=== PATIENT | female | born 1945 | race Caucasian/White ===

== ENCOUNTER 2018-09-22 06:20 | Inpatient (IN) ==
[2018-09-22] MEDS ORDERED: Metoprolol Tartrate 25 MG Tablet PO ONE (06:55)
[2018-09-22] MEDS ORDERED: Chlorhexidine Gluconate 2% 1 Pack (2 Cloths) TOPICAL ONE (06:55)
[2018-09-22] MEDS ORDERED: Sodium Chlor 0.9% Inj 40 ML, Bupivacaine Liposo PF 1.3% Inj 20 ML P-ARTICULR SCH ×2 (07:00)
[2018-09-22] MEDS ORDERED: Tranexamic Acid Inj 954 MG in Sodium Chlor 0.9% Inj 100 ML IV.SIG SCH (07:00)
[2018-09-22] MEDS ORDERED: Vancomycin Inj 1,000 MG in Sodium Chlor 0.9% Inj 250 ML IV.SIG SCH (07:00)
[2018-09-22] MEDS ORDERED: ceFAZolin 2 GM Premix Inj 2 GM/50 ML PIGGYBACK IV.SIG SCH (07:00)
[2018-09-22] MEDS ORDERED: Chlorhexidine 4% Topical 120 APPLIC/120 ML Bottle TOPICAL SCH (07:00)
[2018-09-22] MEDS ORDERED: Sodium Chlor 0.9% Inj 500 ML IV.SIG SCH (07:00)
[2018-09-22] MEDS ORDERED: Bupivacaine/Epinephrine Inj 0.25% 50 ML Vial ONE (08:52)
[2018-09-22] MEDS ORDERED: Lidocaine PF 1% Inj 5 ML Syringe OTHER ONE (10:07)
[2018-09-22] MEDS ORDERED: Glycopyrrolate Inj 1 MG/5 ML Syringe IV.PUSH ONE (10:07)
[2018-09-22] MEDS ORDERED: Neostigmine Inj 5 MG/5 ML Syringe IV.PUSH ONE (10:07)
[2018-09-22] MEDS ORDERED: Phenylephrine/NS 1000 MCG/10ML Syringe IV.PUSH ONE (10:07)
[2018-09-22] MEDS ORDERED: Post-op Orders (for Pharmacy) OTHER STA (12:11)
[2018-09-22] MEDS ORDERED: Bisacodyl 10 MG Supp RECTAL PRN (12:11)
[2018-09-22] MEDS ORDERED: Temazepam 15 MG Capsule PO PRN (12:11)
[2018-09-22] MEDS ORDERED: Morphine Inj 4 MG/ML Vial IV.PUSH PRN (12:11)
--- NOTE | 2018-09-22 12:19 | P.OP ---
- Preoperative Diagnosis (1) Osteoarthritis of right knee - Postoperative Diagnosis (1) Osteoarthritis of right knee Date of procedure: 09/22/18 Procedure: Right total knee replacement arthroplasty Anesthesia: GETA Surgeon: Med Burks MD Operation and Findings: EBL: 100 cc INDICATION: This patient presents with long-standing arthritis of the knee. Attachment record documents conservative measures. The patient now presents for surgical treatment. NOTE: Nona Cameron PA-C was present for the entire surgical procedure as my delinquent tax collector assistant. In my medical opinion her skill and care was necessary for proper management of this patient. TOURNIQUET TIME: 64 minutes COMPANY: [employer] FEMUR: Size 6, posterior stabilized TIBIA: Size 5, fixed-bearing PATELLA: 32 mm POLYETHYLENE INSERT: 14mm, posterior stabilized PROCEDURE: This patient was brought the operating room and anesthetized in the supine position. The patient was positioned supine on the table. The tourniquet was placed about the thigh, and the leg was scrubbed with alcohol followed by Hibiclens followed by ChloraPrep and draped sterilely. A timeout was done, and antibiotics were given. After exsanguination the tourniquet was inflated to 250 mmHg. An anterior incision was made and a median parapatellar arthrotomy was performed. The patella was released laterally and subluxed allowing freehand cut of the patella which was then sized. A metal cap was placed over the exposed patellar surface for protection. A staff cytotechnologist hole was placed in the distal femur allowing a 6 valgus cut removing 9 mm from the distal femur. Anterior posterior and chamfer cuts were made. The posterior stabilize osteotomy was made. The attention was directed to the tibia. Retractors were positioned. The external alignment guide was used allowing the lateral tibia to be used as referencing guide and cut utilizing an oscillating saw taking care to avoid any injury to the surrounding soft tissues. This was sized properly. Trial reduction showed that the insert fit nicely. The patient had range of motion extension 0 flexion 120*. A medial release was not necessary. The bony surfaces prepared. On the back table 2 packets of methylmethacrylate were mixed. The components were cemented. Excess cement was removed. The tourniquet let down and hemostasis was controlled. The final plastic insert was inserted. Range of motion was the same as previously noted. A drain was brought through a separate stab incision. The arthrotomy was repaired with interrupted #1 Vicryl suture, subcutaneous tissue 2-0 Vicryl suture and skin with metallic blayne A sterile dressing was applied. Sponge counts, needle counts and instrument counts were all correct. The patient tolerated procedure well and was taken to recovery in satisfactory condition. FINDINGS: Severe inflammatory changes were seen in addition to extensive osteophytosis and severe degenerative changes. 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 The final solution was excellent. A subtotal synovectomy was accomplished. There was no complication that was appreciated.
--- NOTE | 2018-09-22 12:23 | P.DCO ---
- Physical Therapy Physical Therapy: Gait training Knee: Total knee, Protocol: Right Right Lower Extremity Weight Bearing: Weight bearing as tolerated Right Lower Extremity Range of Motion: Active ROM - Nursing RN: 3 days/week x 2 weeks Dressing changes: Do not change dressing (Unless saturated. If saturated, alcohol dressing change daily) - Certification Need for Home Health services: I have seen patient Olga Pearce on 09/22/18. My clinical findings support the need for the requested home health care services because: Need for Home Health Services: Limited ability to care for self Homebound Certification: I certify that my clinical findings support that this patient is homebound because: Homebound Certification: Unsteady gait/balance
[2018-09-22] MEDS ORDERED: *Meperidine Inj 25 MG/ML Vial PERIprocedural Use ONLY ONE (12:36)
[2018-09-22] MEDS ORDERED: *morphine SULFATE 4 MG/ML PERIprocedure ONLY ONE ×3 (12:42→12:58)
[2018-09-22] MEDS ORDERED: *Promethazine Inj 25 MG/ML Vial PERIprocedural use ONLY ONE (13:10)
[2018-09-22] MEDS ORDERED: fentaNYL Citrate Inj 100 MCG/2 ML Ampul ONE (13:12)
[2018-09-22] MEDS ORDERED: Morphine Inj 4 MG/ML Vial ONE (13:12)
--- NOTE | 2018-09-22 13:57 | XR ---
EXAM DATE: 09/22/2018 1:47 PM EDT AGE/SEX: 73 years / Female INDICATIONS: Post op right knee surgery. CLINICAL DATA: This is the patient's initial encounter. Patient reports that signs and symptoms have been present for 1 day and indicates a pain score of Nonresponsive. MEDICAL/SURGICAL HISTORY: None. None. COMPARISON: No prior exams available for comparison. FINDINGS: Views of the right knee demonstrates arthroplasty. Catheter overlies the right anterior knee. Postsur gical changes. No hardware loosening or fracture CONCLUSION: Right knee arthroplasty. Electronically signed by: Alvaro Hernandez MD 09/22/2018 1:55 PM EDT
[2018-09-22] MEDS: dilTIAZem 60 MG Tablet PO SCH ×2 (15:22→19:41)
[2018-09-22] MEDS: ceFAZolin 1 GM Premix Inj 1 GM/50 ML IV.SIG SCH ×2 (16:12→21:23)
[2018-09-22] MEDS ORDERED: Influenza (Quadrivalent) Vaccine 0.5 ML Syringe IM ONE (19:30)
[2018-09-22] MEDS: Senna/Docusate Sodium 8.6/50 MG Tablet PO SCH (20:31)
[2018-09-22] MEDS: Metoprolol Tartrate 100 MG Tablet PO SCH (20:31)
[2018-09-22] MEDS: Multivitamin/Minerals Therapeutic Tablet PO SCH (20:32)
[2018-09-23] MEDS: ceFAZolin 1 GM Premix Inj 1 GM/50 ML IV.SIG SCH (04:41)
[2018-09-23] MEDS: Metoprolol Tartrate 100 MG Tablet PO SCH ×2 (08:32→20:27)
[2018-09-23] MEDS: Multivitamin/Minerals Therapeutic Tablet PO SCH ×2 (08:32→20:26)
[2018-09-23] MEDS: dilTIAZem 60 MG Tablet PO SCH ×3 (08:33→18:37)
[2018-09-23] MEDS: Lisinopril 20 MG Tablet PO SCH (08:33)
[2018-09-23] MEDS: Senna/Docusate Sodium 8.6/50 MG Tablet PO SCH ×2 (08:33→20:26)
--- NOTE | 2018-09-23 23:54 | P.DS ---
Date of admission: 09/22/18 16:58 Primary care physician: No Primary Care Physician Attending physician on discharge: Med Burks Anticipated date of discharge: 09/24/18 DS: Diagnosis - Discharge Diagnosis (1) Osteoarthritis of right knee Status: Acute DS: Medications - Discharge Medications Prescriptions: apixaban [Eliquis] 2.5 mg PO BID #12 tab hydrocodone-acetaminophen 1 tab PO Q4H PRN #42 tab PRN Reason: Acute Pain DS: Summary Hospital Course: Surgical treatment was performed on the day of admission without complication.... Eliquis 2.5mg and [place] 7.5mg. D/C [facility] #2. - Time Spent with Patient Total time spent providing and/or coordinating discharge services: Greater than 30 minutes - Quality: VTE Deep Vein Thrombosis/Pulmonary Embolism Present on Admission: No Exam Vital signs: Vital Signs 09/23/18 00:00 09/23/18 04:40 09/23/18 08:00 Temperature 97.4 F L 97.3 F L 97.2 F L Pulse Rate 79 73 105 H Respiratory Rate 18 18 17 Blood Pressure 106/74 126/89 137/82 Pulse Oximetry 97 96 97 09/23/18 12:00 09/23/18 16:00 09/23/18 20:00 Temperature 97.1 F L 97.9 F 97.7 F Pulse Rate 101 H 61 107 H Respiratory Rate 17 17 18 Blood Pressure 93/68 L 95/54 L 100/58 L Pulse Oximetry 95 94 L 95 Intake & Output 09/23/18 09/23/18 09/24/18 06:59 18:59 06:59 Intake Total 820 / 820 1000 / 1000 Output Total 895 / 895 250 / 250 Balance -75 / -75 750 / 750 Weight 95.4 kg Intake: IV 100 / 100 1000 / 1000 LR 1000 mL Inj 1,000 ML @ 80 1000 / 1000 mls/hr IV.CONT .[id number] [facility] Rx# :[id number] Ancef 1 GM Premix Inj 1 gm In 100 / 100 50 ml @ 100 mls/hr IV.SIG Q6H [facility]SA Rx#:[id number] Oral 720 / 720 Output: Urine 700 / 700 Urine Amount (Catheter) 170 / 170 Straight 170 / 170 Wound Drainage 25 / 25 250 / 250 # 1 Right Knee Hemovac 25 250 / 250 Other: # Voids 1 5 Date of Last Bowel Movement 09/22/18 09/22/18 # Bowel Movements 0 1 Results Procedures completed during hospitalization: Right total knee arthroplasty Completed studies during hospitalization: Pending at discharge 09/22/18 12:53 Surgical [PTH] Routine - Impressions ITS Impressions Knee X-Ray 09/22/18 12:13 CONCLUSION: Right knee arthroplasty. Discharge Plan - Discharge Disposition Patient Disposition: W/Home Health Service - Discharge Condition Condition: Good - Discharge Order Discharge Orders: Discharge Order (Routine); Ordered 09/24/18 Ordered By: Med Burks - Physicians Team Primary Care Provider: Primary Care Yana Granado Attending Provider: Med Burks Other Providers: [facility] - Rxs /Orders / Referrals /Forms Prescriptions: New apixaban [Eliquis] 2.5 mg Tablet 2.5 mg PO BID Qty: 12 RF: 0 hydrocodone-acetaminophen 7.5-325 mg Tablet 1 tab PO Q4H PRN (Reason: Acute Pain) Qty: 42 RF: 0 Continue atorvastatin 20 mg Tablet 20 mg PO DAILY diltiazem HCl 30 mg Tablet 60 mg PO TID metoprolol tartrate 50 mg Tablet 100 mg PO BID quinapril 20 mg Tablet 20 mg PO DAILY No Action apixaban [Eliquis] 5 mg Tablet 5 mg PO BID Ambulatory Orders / Order Sets / DME: Adjustable Commode 3-in-1 (1 each) (Routine) Location: Determined by Patient Ordered By: Med Burks Walker With Front Wheels (1 each) (Routine) Location: Determined by Patient Ordered By: Med Burks Referrals: Primary Care Yana Granado [Primary Care Provider] - See Instructions - Discharge Instructions Patient Printed Instructions: Knee Replacement (DC) - Post Discharge Care Plan Care Plan Goals: Discharge Care Plan Goals for RIGHT Total Knee Replacement You have undergone knee replacement surgery. Your doctor replaced your painful joint with an artificial joint to relieve pain and restore movement. Here are some goals to help you heal well. Directions to Meet your Goals: 1. Activity & Exercises: * Take pain medicine as directed by your doctor. * Sit in chairs with arms. The arms make it easier for you to stand up or sit down. * Dont sit for more than 30 to 45 minutes at one time. * Nap if you are tired, but dont stay in bed all day. * Sleep with a pillow under your ankle, not your knee. Be sure to change the position of your leg during the night. * Wear the support stockings you were given in the hospital as directed by your surgeon. 2. Prevent Falls/Injury: The nieto to successful recovery is movement with walking and exercising your knee as directed by your doctor. * Arrange your household to keep the items you need handy. Keep everything else out of the way. * Remove items that may cause you to fall, such as throw rugs and electrical cords. * Use nonslip bath mats, grab bars, an elevated toilet seat, and a shower chair in your bathroom * Sit on a shower stool or chair when you shower to keep from falling. * Until your balance, flexibility, and strength improve, use a cane, crutches, a walker, handrails, or someone to help you. * Keep your hands free by using a backpack, fiordaliza pack, apron, or pockets to carry things * Walk up and down stairs with support. Try one step at a time. Use the railing if possible. * Dont drive until your doctor says its OK. * Dont drive while you are taking opioid pain medicine. 3. Precautions: * Prevent infection. Any infection will need to be treated immediately. Call your doctor right away if you think you might have an infection. * Tell your dentist that you have an artificial joint and take antibiotics as prescribed before any dental work. * Tell all your healthcare providers about your artificial joint before any medical procedure. * Maintain a healthy weight. Get help to lose any extra pounds. Added body weight puts stress on the knee. * Your medications may include blood-thinning medicine to prevent blood clots or antibiotics to prevent infection-prevent any falls or cuts 4. Incision Care: * Prevent infection by washing your hands often. If an infection occurs, it will need to be treated right away. * Call your doctor right away if you think you may have an infection. Symptoms include a fever or an incision that leaks white, green, or yellow fluid. * Don't soak your incision in water until your doctor says its OK. This means no hot tubs, bathtubs, or swimming pools. * Follow your doctor's instructions for changing the dressing. * Dont rub the incision, or apply creams or lotions to it. * If you notice any redness or drainage around the bandage site, contact your surgeon's office immediately. 5. Follow-Up: Do Not miss your follow-up appointment. Keep up with all your appointments and yearly check ups When to call your doctor: Call your doctor right away if you have: Fever of 100.4F (38C) or higher, or as directed by your doctor Shaking chills Stiffness, or inability to move the knee Increased swelling in your leg Increased redness, tenderness, or swelling in or around the knee incision Drainage from the knee incision Increased knee pain Call 911: Call 911 right away if you have: Chest pain Shortness of breath Any pain or tenderness in your calf
--- NOTE | 2018-09-23 23:54 | P.PNOP ---
Subjective Interval history: Patient seen during Joint Class at 1pm. Doing alright. Pain moderately controlled. No new leg pain. No CP or SOB. Questions about discharge - she is unsure about going home vs SNF. Physical Exam Vital signs: Vital Signs 09/23/18 00:00 09/23/18 04:40 09/23/18 08:00 Temperature 97.4 F L 97.3 F L 97.2 F L Pulse Rate 79 73 105 H Respiratory Rate 18 18 17 Blood Pressure 106/74 126/89 137/82 Pulse Oximetry 97 96 97 09/23/18 12:00 09/23/18 16:00 09/23/18 20:00 Temperature 97.1 F L 97.9 F 97.7 F Pulse Rate 101 H 61 107 H Respiratory Rate 17 17 18 Blood Pressure 93/68 L 95/54 L 100/58 L Pulse Oximetry 95 94 L 95 Intake & Output 09/23/18 09/23/18 09/24/18 06:59 18:59 06:59 Intake Total 820 / 820 1000 / 1000 Output Total 895 / 895 250 / 250 Balance -75 / -75 750 / 750 Weight 95.4 kg Intake: IV 100 / 100 1000 / 1000 LR 1000 mL Inj 1,000 ML @ 80 1000 / 1000 mls/hr IV.CONT .[id number] [facility] Rx# :[id number] Ancef 1 GM Premix Inj 1 gm In 100 / 100 50 ml @ 100 mls/hr IV.SIG Q6H [facility] Rx#:[id number] Oral 720 / 720 Output: Urine 700 / 700 Urine Amount (Catheter) 170 / 170 Straight 170 / 170 Wound Drainage 250 / 250 # 1 Right Knee Hemovac 250 / 250 Other: # Voids 1 5 Date of Last Bowel Movement 09/22/18 09/22/18 # Bowel Movements 0 1 Narrative: Sitting up in her chair In class NAD RLE Knee dressing intact, drain in place, mild swelling, no erythema +motor at distal, +sens, +nvi Neg homans - Constitutional no acute distress - Urinary Catheter Management Straight Cath placed during this visit: yes, but has since been removed by the nurse Reason for continuing: Not indwelling catheter Insertion date: 09/22/18 Insertion time: 19:30 Removal date: 09/22/18 Removal time: 20:30 Results - Procedures Right total knee arthroplasty Assessment and Plan - Ortho Post Op Day # 1 - Assessment and Plan pod#1 s/p R TKA Doing well. Pain moderately controlled. No labs ordered. Will get hg/hct tomorrow am. Ok to d/c knee drain today. PT - WBAT. TKA precautions. PO pain meds as needed. Eliquis 2.5mg Hold dressing changes unless saturated. Ok to d/c drain and redress drain site only. Plan on d/c home w [facility] tomorrow.
[2018-09-24 05:05] LABS: Hematocrit 32.5 % (35.0-46.0); Hemoglobin 10.6 gm/dL (11.6-15.3)
--- NOTE | 2018-09-24 08:34 | P.PNOP ---
Subjective Interval history: Doing better today. Knee pain but no new leg pain. PT went well. Considering discharge home today. Physical Exam Vital signs: Vital Signs 09/23/18 12:00 09/23/18 16:00 09/23/18 20:00 Temperature 97.1 F L 97.9 F 97.7 F Pulse Rate 101 H 61 107 H Respiratory Rate 17 17 18 Blood Pressure 93/68 L 95/54 L 100/58 L Pulse Oximetry 95 94 L 95 09/24/18 00:00 09/24/18 04:00 Temperature 97.7 F 97.9 F Pulse Rate 68 81 Respiratory Rate 18 17 Blood Pressure 113/75 119/83 Pulse Oximetry 97 95 Intake & Output 09/23/18 09/24/18 09/24/18 18:59 06:59 18:59 Intake Total 1000 / 1000 Output Total 250 / 250 Balance 750 / 750 Weight 99.6 kg Intake: IV 1000 / 1000 LR 1000 mL Inj 1,000 ML @ 80 1000 / 1000 mls/hr IV.CONT .[id number] [facility] Rx# :[id number] Output: Wound Drainage 250 / 250 # 1 Right Knee Hemovac 250 / 250 Other: # Voids 5 4 Date of Last Bowel Movement 09/22/18 09/22/18 # Bowel Movements 1 Narrative: Sitting up in bed NAD RLE Knee dressing intact, drain removed, mild swelling, no erythema +motor at distal, +sens, +nvi Neg homans - Constitutional no acute distress - Urinary Catheter Management Straight Cath placed during this visit: yes, but has since been removed by the nurse Reason for continuing: Not indwelling catheter Insertion date: 09/22/18 Insertion time: 19:30 Removal date: 09/22/18 Removal time: 20:30 Results - Labs CBC & Chem 7: 09/24/18 04:36 Laboratory Results - last 24 hr 09/24/18 04:36 Hgb 10.6 L Hct 32.5 L - Procedures Right total knee arthroplasty Assessment and Plan - Ortho Post Op Day # 2 - Assessment and Plan pod#2 s/p R TKA Doing better today. Ambulating slowly but well w PT. Ok to d/c home w [facility] today. PO pain meds as needed. Hg stable. No repeat labs needed. PT - WBAT. TKA precautions. Eliquis 2.5mg Hold dressing changes unless saturated. F/U in 2 weeks as scheduled.
[2018-09-24] MEDS: dilTIAZem 60 MG Tablet PO SCH ×2 (09:52→12:13)
[2018-09-24] MEDS: Lisinopril 20 MG Tablet PO SCH (09:52)
[2018-09-24] MEDS: Multivitamin/Minerals Therapeutic Tablet PO SCH (09:52)
[2018-09-24] MEDS: Metoprolol Tartrate 100 MG Tablet PO SCH (09:52)
[2018-09-24] MEDS: Senna/Docusate Sodium 8.6/50 MG Tablet PO SCH (09:54)
[2018-09-24 10:40] VITALS: O2SAT 96
[2018-09-24 12:12] VITALS: BP 114/78; PULSE 95; RESP 18; TEMP 97.9
== END 2018-09-24 16:14 | disposition home health service (06) ==
LOC: HSDI 06:20 → HSDC 06:20 → EDSTATUS 09:00 → N06 17:05
PROVIDERS: ADMIT Orthopaedic Surgery Orthopaedic Surgery of the Spine; ATTEND Orthopaedic Surgery Orthopaedic Surgery of the Spine